=== PATIENT | male | born 1990 | race Caucasian/White ===

== ENCOUNTER 2017-12-15 18:26 | Emergency (ER) | payer OTHER ==
[2017-12-15] MEDS ORDERED: MORPHINE 4 MG/ML SYR ONE (18:53)
[2017-12-15] MEDS ORDERED: ONDANSETRON 4 MG/2 ML VIAL ONE (18:53)
[2017-12-15] MEDS ORDERED: NA CHLORIDE 0.9% 1,000 ML ONE (19:11)
[2017-12-15 19:30] LABS: Absolute Lymphocytes (CBC) 1.5 K/uL (0.7-4.9); Absolute Monocytes 0.5 K/uL (0.1-1.3); Absolute Neutrophil 8.9 K/uL (1.8-8.0); Basophils % 0.4 % (0-1.3); Eosinophils % 1.8 % (0-4.4); Hematocrit 43.1 % (39.6-49.0); Lymphocytes % 13.2 % (15.3-44.8); MCH 29.2 pg (27.0-35.0); MCV 89.2 fL (80-100); MPV 9.5 fL (7.6-11.3); Monocytes % 4.4 % (3.3-12.3); RBC Red Blood Cell Count 4.83 M/uL (4.33-5.43)
--- NOTE | 2017-12-15 19:35 | RAD REPORT ---
EXAM DESCRIPTION: RAD - Tib Fib Right - 12/15/2017 7:26 pm CLINICAL HISTORY: Trauma, fall, pain COMPARISON: None. FINDINGS: Right tibia/ fibula and right ankle, multiple projections are submitted. No acute fracture or dislocation is identified. Old traumatic changes are present about the ankle. IMPRESSION: No acute finding is demonstrated.
--- NOTE | 2017-12-15 19:38 | RAD REPORT ---
EXAM DESCRIPTION: CT - Chest Abdomen Pelvis W Cont - 12/15/2017 7:12 pm CLINICAL HISTORY: Trauma, fall, chest, abdomen and pelvis pain. COMPARISON: None. TECHNIQUE All CT scans are performed using dose optimization technique as appropriate and may includ e automated exposure control or mA/KV adjustment according to patient size. FINDINGS: The lungs are clear.No pleural or pericardial effusion.No intrathoracic adenopathy. The liver, spleen, pancreas, adrenal glands and kidneys are within normal limits. No bowel obstruction, free air, free fluid or abscess. No pathologic lymphadenopathy in the abdomen o r pelvis. No worrisome osseous finding. IMPRESSION: No acute abnormality is seen.
[2017-12-15 19:42] LABS: Potassium 3.6 mEq/L (3.6-5.0)
--- NOTE | 2017-12-15 19:48 | ER ---
Nurse's Notes [facility] Name: Corby Herrera Age: 26 yrs Sex: Male : 1990 Arrival Date: 12/15/2017 Time: 18:32 Bed 6 Private MD: Diagnosis: Fall (on) (from) other stairs and steps;Contusion of right foot;Contusion of right lower leg;Contusion of right front wall of thorax Presentation: 12/15 18:32 Presenting complaint: Patient states: Fell 10 ft off of ladder onto coal washer tender at aj 1700 today. Abrasions noted to RUQ and right lower leg. Care prior to arrival: None. Mechanism of Injury: Fall from ladder approximately 10 feet. Trauma event details: Injury occurred in the [facility], Injury occurred: at home. Injury occurred: December 15, 2017 Injury occurred at: 17:00. 18:32 Acuity: PHILLIP 3 aj 18:32 Method Of Arrival: Wheelchair aj 18:38 Transition of care: patient was not received from another setting of care. Onset of symptoms was December 15, 2017. Initial Sepsis Screen: Does the patient meet any 2 criteria? No. Patient's initial sepsis screen is negative. Does the patient have a suspected source of infection? No. Patient's initial sepsis screen is negative. Trauma Activation: Alert Physician: ED Physician; Name: ; Notified At: ; Arrived At: Physician: General Surgeon; Name: ; Notified At: ; Arrived At: Physician: Radiology; Name: ; Notified At: ; Arrived At: Physician: Respiratory; Name: ; Notified At: ; Arrived At: Physician: Lab; Name: ; Notified At: ; Arrived At: Historical: - Allergies: 18:38 Sulfa (Sulfonamide Antibiotics); aj - Home Meds: 18:38 None [Active]; aj - PMHx: 18:38 None; aj - PSHx: 18:38 None; aj - Immunization history: Last tetanus immunization: unknown. - Social history:: Smoking status: Patient/guardian denies using tobacco, Patient uses alcohol, only on a social basis. Screenin:20 Abuse screen: Denies threats or abuse. Denies injuries from another. Nutritional ak1 screening: No deficits noted. Tuberculosis screening: No symptoms or risk factors identified. Fall Risk None identified. Primary Survey: 18:34 A: Airway: patent. Breathing/Chest: Respiratory pattern: regular, Respiratory effort: aj spontaneous, unlabored, Breath sounds: clear, in right upper lobe, right middle lobe, right lower lobe, left posterior upper lobe, right posterior upper lobe, left posterior lower lobe, right posterior middle lobe and right posterior lower lobe diminished, in left lower lobe Chest inspection: symmetrical rise and fall of the chest. Circulation: Skin color: pink, Skin temperature: warm, dry. Disability Alert. 18:45 Reassessment Airway Airway Patent Breathing/Chest Respiratory pattern Regular jl7 Respiratory effort Spontaneous Unlabored Shallow Breath sounds Clear Chest inspection Symmetrical Circulation Heart tones Present Pulses Palpable Color [place] Temperature Warm Disability Alert. Secondary Survey: 18:45 HEENT: No deficits noted. Gastrointestinal: Abdomen is soft, flat, bruised right upper jl7 quadrant and right lower quadrant non-distended, Bowel sounds present in all quadrants. : No signs and/or symptoms were reported regarding the genitourinary system. Musculoskeletal: Range of motion: intact in all extremities, bruising noted to right lower extremity. Assessment: 18:34 General: Appears in no apparent distress. uncomfortable, Behavior is calm, cooperative, aj appropriate for age. Pain: Complains of pain in right upper quadrant, right burton, anterior aspect of right ankle and dorsum of right foot. Neuro: Level of Consciousness is awake, alert, obeys commands, Oriented to person, place, time, situation, Appropriate for age. Respiratory: Airway is patent Trachea midline Respiratory effort is even, unlabored, Respiratory pattern is regular, symmetrical, Breath sounds are clear in right upper lobe, right middle lobe, right lower lobe, left posterior upper lobe, right posterior upper lobe, left posterior lower lobe, right posterior middle lobe and right posterior lower lobe Breath sounds are diminished in left lower lobe. GI: Abdomen is flat, non-distended, Reports upper abdominal pain. : No signs and/or symptoms were reported regarding the genitourinary system. Derm: Skin is intact, is healthy with good turgor, Skin is pink, warm \T\ dry. normal. 18:34 Injury Description: Abrasion sustained to right upper quadrant, lateral aspect of right aj calf, right ankle, right burton, anterior aspect of right ankle and dorsum of right foot. 19:39 Reassessment: Patient appears in no apparent distress at this time. Patient is alert, ak1 oriented x 3, equal unlabored respirations, skin warm/dry/pink. ice packs applied to right rib area, right top of foot, right burton for pt comfort. Vital Signs: 18:34 BP 118 / 68; Pulse 68; Resp 20; Temp 98.2; Pulse Ox 97% on R/A; Weight 95.25 kg; Height aj 6 ft. 0 in. (182.88 cm); Pain 10/10; 18:34 Body Mass Index 28.48 (95.25 kg, 182.88 cm) aj Shabbir Coma Score: 18:34 Eye Response: spontaneous(4). Verbal Response: oriented(5). Motor Response: obeys aj commands(6). Total: 15. Trauma Score (Adult): 18:34 Eye Response: spontaneous(1); Verbal Response: oriented(1); Motor Response: obeys aj commands(2); Systolic BP: > 89 mm Hg(4); Respiratory Rate: 10 to 29 per min(4); Shabbir Score: 15; Trauma Score: 12 ED Course: 18:32 Patient arrived in ED. aj 18:34 Triage completed. aj 18:38 Arm band placed on left wrist. Patient placed in an exam room. aj 18:45 Patient has correct armband on for positive identification. Bed in low position. Call jl7 light in reach. Side rails up X2. 18:45 Initial lab(s) drawn, by me, sent to lab. T\T\S collected, blood band applied to patient. jl7 Inserted saline lock: 20 gauge in right antecubital area, using aseptic technique. Blood collected. 18:46 Mary Benitez FNP-C is PHCP. snw 18:46 Louie Mukherjee MD is Attending Physician. snw 18:47 Chris Bryant NP is PHCP. pm1 19:12 CT completed. Patient moved to CT via stretcher. Patient moved back from CT. cw1 19:13 CT Chest, Abdomen, Pelvis - W/Contrast In Process Unspecified. EDMS 19:20 Avelina Polanco, RN is Primary Nurse. ak1 19:20 Patient maintains SpO2 saturation greater than 95% on room air. Thermoregulation: warm ak1 blanket given to patient. 19:27 Foot Right 3 View XRAY In Process Unspecified. EDMS 19:27 Tib Fib Right XRAY In Process Unspecified. EDMS 19:27 Report given to FARRAH Quan. jl7 20:17 No provider procedures requiring assistance completed. IV discontinued, intact, ak1 bleeding controlled, No redness/swelling at site. Pressure dressing applied. Administered Medications: 18:53 Drug: Zofran 4 mg Route: IVP; Site: right antecubital; jl7 19:38 Follow up: Response: No adverse reaction ak1 18:55 Drug: morphine 4 mg Route: IVP; Site: right antecubital; jl7 19:38 Follow up: Response: No adverse reaction ak1 19:38 Drug: NS 0.9% 1000 ml Route: IV; Rate: 1000 ml; Site: right antecubital; ak1 20:18 Follow up: IV Status: Completed infusion ak1 20:34 Drug: TORadol 30 mg Route: IVP; Site: right antecubital; ak1 20:34 Follow up: Response: No adverse reaction ak1 20:34 Drug: [place] 10 mg-325 mg 1 tabs Route: PO; ak1 20:34 Follow up: Response: No adverse reaction ak1 Intake: 20:18 PO: 0ml; Total: 0ml. ak1 Outcome: 19:47 Discharge ordered by MD. pm1 20:17 Discharged to home ambulatory, with family. ak1 20:17 Condition: stable 20:17 Discharge instructions given to patient, family, Instructed on discharge instructions, follow up and referral plans. no drinking with medication, no driving heavy equipment, medication usage, Demonstrated understanding of instructions, follow-up care, medications, Prescriptions given X 3. 20:17 Patient's length of stay in the Emergency Department was greater than [address] resultsPatient's length of stay extended due to 20:35 Patient left the ED. ak1 Signatures: Dispatcher [employer] EDMS Jaida Lagunas RN RN aj Therrien, Shelly, CHEESEMAKER HELPER-C CHEESEMAKER HELPER-Csnw Yola Meyers, FARRAH RN Yany Murrell cw1 Avelina Polanco RN RN ak1 Chris Bryant, TRICIA ADMINISTRATIVE RECEPTIONIST pm1 Grayson Bah RN RN jl7 Corrections: (The following items were deleted from the chart) 19:09 19:05 Yola Meyers RN is Primary Nurse. aa5 aa5
--- NOTE | 2017-12-15 19:48 | EDPHYS ---
Physician Documentation [facility] Name: Corby Herrera Age: 26 yrs Sex: Male : 1990 Arrival Date: 12/15/2017 Time: 18:32 Bed 6 Private MD: ED Physician Louie Mukherjee HPI: 12/15 20:00 This 26 yrs old Male presents to ER via Wheelchair with complaints of Fall pm1 Injury. 20:00 Details of fall: The patient fell from a height, from a ladder, but was slowed somewhat pm1 by hitting ladder rungs, and struck a grass-covered surface, landed bottle washer. Onset: The symptoms/episode began/occurred 2 hour service captain. Associated injuries: The patient sustained injury to the abdomen, specifically the right upper quadrant, abrasion, contusion, dorsum of right foot and right burton, abrasion, contusion. Severity of symptoms: in the emergency department the symptoms are unchanged. The patient has not experienced similar symptoms in the past. Patient was climbing down the ladder of his trailer home and the ladder rung broke. He was holding the ladder with his left hand and the bottle washer on his right hand. He landed on the grass and his bottle washer. the trailer home is 10 feet tall and his head was at the hit of the top of the trailer home. Did not hit his head or have LOC. No headache, neck pain. Patient presenting with contusion and abrasions to right lower rib area and right upper abdomen, and right lower leg and foot . Historical: - Allergies: 18:38 Sulfa (Sulfonamide Antibiotics); aj - Home Meds: 18:38 None [Active]; aj - PMHx: 18:38 None; aj - PSHx: 18:38 None; aj - Immunization history: Last tetanus immunization: unknown. - Social history:: Smoking status: Patient/guardian denies using tobacco, Patient uses alcohol, only on a social basis. ROS: 20:00 Constitutional: Negative for fever, chills, and weight loss, Eyes: Negative for injury, pm1 pain, redness, and discharge, ENT: Negative for injury, pain, and discharge, Neck: Negative for injury, pain, and swelling, Cardiovascular: Negative for chest pain, palpitations, and edema, Respiratory: Negative for shortness of breath, cough, wheezing, and pleuritic chest pain. 20:00 Abdomen/GI: Positive for abdominal pain, of the right upper quadrant. 20:00 Back: Negative for injury and pain, : Negative for injury, bleeding, discharge, and pm1 swelling, Skin: Negative for injury, rash, and discoloration, Neuro: Negative for headache, weakness, numbness, tingling, and seizure. 20:00 MS/extremity: Positive for abrasion, contusion, of the right burton and dorsum of right foot. Exam: 20:00 Constitutional: This is a well developed, well nourished patient who is awake, alert, pm1 and in no acute distress. Head/Face: Normocephalic, atraumatic. Eyes: Pupils equal round and reactive to light, extra-ocular motions intact. Lids and lashes normal. Conjunctiva and sclera are non-icteric and not injected. Cornea within normal limits. Periorbital areas with no swelling, redness, or edema. ENT: Nares patent. No nasal discharge, no septal abnormalities noted. Tympanic membranes are normal and external auditory canals are clear. Oropharynx with no redness, swelling, or masses, exudates, or evidence of obstruction, uvula midline. Mucous membranes moist. Neck: Trachea midline, no thyromegaly or masses palpated, and no cervical lymphadenopathy. Supple, full range of motion without nuchal rigidity, or vertebral point tenderness. No Meningismus. Cardiovascular: Regular rate and rhythm with a normal S1 and S2. No gallops, murmurs, or rubs. No pulse deficits. Respiratory: Lungs have equal breath sounds bilaterally, clear to auscultation and percussion. No rales, rhonchi or wheezes noted. No increased work of breathing, no retractions or nasal flaring. Back: No spinal tenderness. No costovertebral tenderness. Full range of motion. Skin: Warm, dry with normal turgor. Normal color with no rashes, no lesions, and no evidence of cellulitis. 20:00 MS/ Extremity: Pulses equal, no cyanosis. Neurovascular intact. Full, normal range of motion. 20:00 Chest/axilla: Inspection: abrasion, contusions right lower ribs and right upper abdomen, deformity, is not appreciated, flail chest, is not appreciated, paradoxical chest wall movements, are not appreciated. 20:00 Abdomen/GI: Inspection: abrasion and contusions present to RUQ, Bowel sounds: normal, Palpation: soft, mild abdominal tenderness. Vital Signs: 18:34 BP 118 / 68; Pulse 68; Resp 20; Temp 98.2; Pulse Ox 97% on R/A; Weight 95.25 kg; Height aj 6 ft. 0 in. (182.88 cm); Pain 10/10; 18:34 Body Mass Index 28.48 (95.25 kg, 182.88 cm) aj Shabbir Coma Score: 18:34 Eye Response: spontaneous(4). Verbal Response: oriented(5). Motor Response: obeys aj commands(6). Total: 15. Trauma Score (Adult): 18:34 Eye Response: spontaneous(1); Verbal Response: oriented(1); Motor Response: obeys aj commands(2); Systolic BP: > 89 mm Hg(4); Respiratory Rate: 10 to 29 per min(4); Shabbir Score: 15; Trauma Score: 12 MDM: 18:46 Patient medically screened. snw 18:47 Patient medically screened. pm1 19:45 Data reviewed: vital signs. Data interpreted: Pulse oximetry: on room air is 97 %. pm1 Interpretation: normal. Counseling: I had a detailed discussion with the patient and/or guardian regarding: the historical points, exam findings, and any diagnostic results supporting the discharge/admit diagnosis, lab results, radiology results, the need for outpatient follow up, to return to the emergency department if symptoms worsen or persist or if there are any questions or concerns that arise at home. 12/15 18:48 Order name: Basic Metabolic Panel pm1 12/15 18:48 Order name: CBC with Diff pm1 12/15 18:48 Order name: Creatinine for Radiology pm1 12/15 18:48 Order name: Type And Screen pm1 12/15 18:49 Order name: Basic Metabolic Panel; Complete Time: 19:44 EDMS 12/15 18:49 Order name: CBC with Automated Diff; Complete Time: 19:38 EDMS 12/15 18:48 Order name: CT Chest, Abdomen, Pelvis - W/Contrast; Complete Time: 19:38 pm1 12/15 18:48 Order name: Foot Right 3 View XRAY pm1 12/15 18:48 Order name: Tib Fib Right XRAY; Complete Time: 19:38 pm1 12/15 18:49 Order name: Creatinine (Radiology Only); Complete Time: 19:44 EDMS 12/15 18:49 Order name: Type and Screen; Complete Time: 21:29 EDMS 12/15 18:48 Order name: Labs collected and sent; Complete Time: 19:27 pm1 Administered Medications: 18:53 Drug: Zofran 4 mg Route: IVP; Site: right antecubital; jl7 19:38 Follow up: Response: No adverse reaction ak1 18:55 Drug: morphine 4 mg Route: IVP; Site: right antecubital; jl7 19:38 Follow up: Response: No adverse reaction ak1 19:38 Drug: NS 0.9% 1000 ml Route: IV; Rate: 1000 ml; Site: right antecubital; ak1 20:18 Follow up: IV Status: Completed infusion ak1 20:34 Drug: TORadol 30 mg Route: IVP; Site: right antecubital; ak1 20:34 Follow up: Response: No adverse reaction ak1 20:34 Drug: [place] 10 mg-325 mg 1 tabs Route: PO; ak1 20:34 Follow up: Response: No adverse reaction ak1 Disposition: 12/16 07:29 Co-signature as Attending Physician, Louie Mukherjee MD. rn Disposition: 12/15/17 19:47 Discharged to Home. Impression: Fall (on) (from) other stairs and steps, Contusion of right foot, Contusion of right lower leg, Contusion of right front wall of thorax. - Condition is Stable. - Discharge Instructions: Abrasion, Blunt Abdominal Trauma, Foot Contusion, Chest Contusion. - Prescriptions for Naprosyn 500 mg Oral Tablet - take 1 tablet by ORAL route 2 times per day take with food; 30 tablet. Tylenol- Codeine #3 300-30 mg Oral Tablet - take 2 tablets by ORAL route every 6 hours As needed; 20 tablet. Cyclobenzaprine 10 mg Oral Tablet - take 1 tablet by ORAL route every 8 hours As needed; 30 tablet. - Work release form, Medication Reconciliation Form, Thank You Letter, Prescription Opioid Use form. - Follow up: Emergency Department; When: As needed; Reason: Worsening of condition. Follow up: Private Physician; When: 2 - 3 days; Reason: Recheck today's complaints, Continuance of care, Re-evaluation by your physician. - Problem is new. - Symptoms have improved. Signatures: Dispatcher [employer] EDMS Jaida Lagunas RN Mary Katz, GRAVES REGISTRATION SPECIALIST-C GRAVES REGISTRATION SPECIALIST-Csnw Louie Mukherjee MD MD rn Krenek, Amber RN RN ak1 Chris Bryant, HEARING AID MECHANIC HEARING AID MECHANIC pm1 Grayson Bah RN RN jl7 Corrections: (The following items were deleted from the chart) 12/15 20:19 18:48 Urine Dipstick-Ancillary ordered. pm1 ak1 20:35 19:47 12/15/2017 19:47 Discharged to Home. Impression: Fall (on) (from) other stairs ak1 and steps; Contusion of right foot; Contusion of right lower leg; Contusion of right front wall of thorax. Condition is Stable. Forms are Medication Reconciliation Form, Thank You Letter, Antibiotic Education, Prescription Opioid Use. Follow up: Emergency Department; When: As needed; Reason: Worsening of condition. Follow up: Private Physician; When: 2 - 3 days; Reason: Recheck today's complaints, Continuance of care, Re-evaluation by your physician. Problem is new. Symptoms have improved. pm1
[2017-12-15] MEDS ORDERED: HYDROCODONE/APAP 10/325 TAB ONE (20:27)
[2017-12-15] MEDS ORDERED: KETOROLAC 30 MG/ML INJ ONE (20:28)
--- NOTE | 2017-12-16 09:51 | RAD REPORT ---
EXAM DESCRIPTION: RAD - Foot Right 3 View - 12/15/2017 7:26 pm CLINICAL HISTORY: Trauma, fall, pain COMPARISON: None. FINDINGS: Right tibia/ fibula and right ankle, multiple projections are submitted. No acute fracture or dislocation is identified. Old traumatic changes are present about the ankle. IMPRESSION: No acute finding is demonstrated.
== END 2017-12-15 20:35 | disposition home or self-care (01) ==
LOC: ER 18:26
DX: S20.211A Contusion of right front wall of thorax, initial encounter (principal); S80.11XA Contusion of right lower leg, initial encounter; S90.31XA Contusion of right foot, initial encounter; W11.XXXA Fall on and from ladder, initial encounter; Y93.89 Activity, other specified; Y92.89 Other specified places as the place of occurrence of the external cause; Z88.2 Allergy status to sulfonamides
CPT/HCPCS: 36415; 71260; 74177; 80048; 85025; 86850; 86900; 86901; 96361; 96374; 96375; 99285; J2405; J7030; Q9967